=== PATIENT | male | born 1985 | race Two or more races ===

== ENCOUNTER 2018-11-04 10:18 | Emergency (ER) | payer OTHER ==
[~2018-11-04] VITALS: Ht 167.6 cm; Wt 90.7 kg
[2018-11-04 10:26] VITALS: BP 128/65
--- NOTE | 2018-11-04 10:27 | NUR ---
ED Nurse Note: Pt aao x 2-3 brought [address] to both feet pain 03/27. pt has weather appropriate clothing but soiled. pt calm and cooperative. waiting to be seen by .
[2018-11-04] MEDS ORDERED: BusPIRone 5mg Tab ORAL ONE (11:00)
[2018-11-04] MEDS ORDERED: Ketorolac 30mg Inj IM ONE (11:00)
[2018-11-04] MEDS ORDERED: BusPIRone 10mg Tab ORAL ONE (11:15)
--- NOTE | 2018-11-04 13:30 | NUR ---
ED Nurse Note: [place] and juices provided to pt. Pt has appropriate clothing for winter.
[2018-11-04] MEDS ORDERED: ABILIFY10 MG ORAL (13:48)
[2018-11-04] MEDS ORDERED: QUETIAPINE FUM100 MG ORAL (13:48)
[2018-11-04] MEDS ORDERED: BUSPIRONE HCL5 M1 ORAL (13:48)
--- NOTE | 2018-11-04 13:58 | Emergency Room Report ---
History of Present Illness General Chief Complaint: Pain Source: Patient Present Illness HPI 33-year-old male presents ED for evaluation. Brought in by EMS. From the street complaining of bilateral foot pain. States she's been walking a lot. Notes pain to the bottom of his feet. Pain is throbbing, 8 out of 10, nonradiating. Denies any recent injury. Mother called ER stating that patient is not taking his psychiatric medications and does not have a place to stay. Patient denies SI or HI. knows names of his medications. Does not know the dosages. States he takes Seroquel, Abilify, BuSpar. No other aggravating relieving factors. Denies any other associated symptoms Allergies: Coded Allergies: No Known Allergies (Unverified , 11/04/18) Patient History Past Medical History: none Past Surgical History: none Pertinent Family History: none Social History: Denies: smoking, alcohol use, drug use Immunizations: UTD Reviewed Nursing Documentation: PMH: Agreed; PSxH: Agreed Nursing Documentation-PMH Past Medical History: No Stated History Review of Systems All Other Systems: negative except mentioned in HPI Physical Exam Vital Signs Date Time Temp Pulse Resp B/P (MAP) Pulse Ox O2 Delivery O2 Flow Rate FiO2 11/04/18 10:18 98.2 92 16 130/68 98 Room Air Sp02 EP Interpretation: reviewed, normal General Appearance: no apparent distress, alert, GCS 15, non-toxic Head: normocephalic, atraumatic Eyes: bilateral eye normal inspection, bilateral eye PERRL ENT: hearing grossly normal, normal pharynx, no angioedema, normal voice Neck: full range of motion, supple/symm/no masses Respiratory: chest non-tender, lungs clear, normal breath sounds, speaking full sentences Cardiovascular #1: regular rate, rhythm, no edema Cardiovascular #2: 2+ carotid (R), 2+ carotid (L), 2+ radial (R), 2+ radial (L) , 2+ dorsalis pedis (R), 2+ dorsalis pedis (L) Gastrointestinal: normal bowel sounds, non tender, soft, non-distended, no guarding, no rebound Rectal: deferred Genitourinary: normal inspection, no CVA tenderness Musculoskeletal: back normal, gait/station normal, normal range of motion, non- tender Neurologic: alert, oriented x3, responsive, motor strength/tone normal, sensory intact, speech normal Psychiatric: judgement/insight normal, memory normal, mood/affect normal, no suicidal/homicidal ideation Reflexes: 3+ bicep (R), 3+ bicep (L), 3+ tricep (R), 3+ tricep (L), 3+ knee (R) , 3+ knee (L) Skin: normal color, no rash, warm/dry, well hydrated Lymphatic: no adenopathy Medical Decision Making Homeless Attestation I, The treating physician Dr. Purcell, has assessed and agrees that patient is medically stable for discharge to an outpatient disposition. Diagnostic Impression: Primary Impression: Behavioral disorder Additional Impression: Pain ER Course 33-year-old male presents ED complaining of bilateral foot pain. Homeless Differentialfracture, dislocation, cellulitis Patient placed in stretcher. After initial history physical exam reveals male in no acute distress. There is no bony tenderness. No swelling to the feet. No signs of infection. No signs of fracture. Nontender on exam Pain likely due to the fact that patient is walking all day with old shoes. Does not have a place to stay Patient denies SI or HI. Denies hearing voices. Admits to not taking his medication for several months. States he takes seroquel, BuSpar, Abilify. Does not know the dosages Patient given medications here. Resting comfortably. No indication for emergent psychiatric evaluation. Homeless checklist completed. Patient safe for discharge. Will be given mental health referrals. Given 10 day supply of his medications. Given that we do not know the dosages we will prescribe the lowest dose of each medication Diagnosisbehavioral, pain Stable discharged to [facility]. With prescriptions for Seroquel, BuSpar, Abilify. Follow-up with psych. Return to ED if symptoms recur or worsen Last Vital Signs Date Time Temp Pulse Resp B/P (MAP) Pulse Ox O2 Delivery O2 Flow Rate FiO2 11/04/18 11:42 98.2 11/04/18 10:26 82 16 128/65 98 Room Air Status: improved Disposition: HOME, SELF-CARE Condition: Stable Scripts Aripiprazole* (ABILIFY*) 10 Mg Tablet 10 MG ORAL DAILY for 10 Days, TAB Prov: Devin Purcell MD 11/04/18 Buspirone Hcl* (BUSPIRONE HCL*) 5 Mg Tablet 5 MG ORAL TWICE A DAY for 10 Days, TAB 0 Refills Prov: Devin Purcell MD 11/04/18 Quetiapine Fumarate* (SEROQUEL*) 100 Mg Tablet 100 MG ORAL DAILY for 10 Days, TAB Prov: Devin Purcell MD 11/04/18 Referrals: [facility] Psych ER - Peds ER - [facility] Intake Hotline - Patient Instructions: Schizophrenia Devin Purcell MD Nov 04, 2018 13:58
[2018-11-04 14:05] VITALS: BP 118/72
--- NOTE | 2018-11-04 14:05 | NUR ---
ED Nurse Note: Pt is cleared by Health Care Provider for discharge. Pt was given referrals for prison placement. DC instructions/prescription was given and explained to pt and verbalized understanding of teachings given. All medical devices such as ID band removed. Pt AAO x4, ambulatory and left with all personal belongings.
== END 2018-11-04 14:05 | disposition home or self-care (01) ==
LOC: EDBD 10:18 → EMR 10:55
DX: M79.672 Pain in left foot (principal); M79.671 Pain in right foot; F91.9 Conduct disorder, unspecified; Z59.0 Homelessness
CPT/HCPCS: 96372; 99283; J1885